=== PATIENT | female | born 1975 | race Caucasian/White ===

== ENCOUNTER 2024-05-16 08:28 | Outpatient (CLI) | payer MEDICARE, MEDICAID, SELFPAY | END 2024-05-16 08:29 | disposition home or self-care (01) | PROVIDERS: PCP Family Medicine; Visit Provider Family Medicine | DX: I10 Essential (primary) hypertension (principal); E03.9 Hypothyroidism, unspecified; E66.9 Obesity, unspecified; R53.83 Other fatigue; R35.0 Frequency of micturition; F41.8 Other specified anxiety disorders; Z78.0 Asymptomatic menopausal state | CPT/HCPCS: 80053; 80061; 82306; 84443; 87086 ==

== ENCOUNTER 2024-06-17 11:05 | Outpatient (CLI) | payer MEDICARE, OTHER, SELFPAY | END 2024-06-17 11:06 | disposition home or self-care (01) | LOC: NFLDREF 06-18 01:50 | PROVIDERS: PCP Family Medicine; Referring Provider Family Medicine; Visit Provider Family Medicine | DX: E03.9 Hypothyroidism, unspecified (principal); D72.829 Elevated white blood cell count, unspecified; R53.83 Other fatigue; N39.0 Urinary tract infection, site not specified | CPT/HCPCS: 84443; 87086 ==

== ENCOUNTER 2024-08-12 11:05 | Outpatient (CLI) | payer MEDICARE, OTHER, SELFPAY | END 2024-08-12 11:06 | disposition home or self-care (01) | PROVIDERS: PCP Family Medicine; Visit Provider Family Medicine | DX: I10 Essential (primary) hypertension (principal); E03.9 Hypothyroidism, unspecified; E55.9 Vitamin D deficiency, unspecified; E11.9 Type 2 diabetes mellitus without complications; E66.9 Obesity, unspecified; R51.9 Headache, unspecified | CPT/HCPCS: 80048; 82043; 82570; 84443 ==

== ENCOUNTER 2024-08-19 14:51 | Outpatient (CLI) | payer MEDICARE, OTHER, SELFPAY ==
--- NOTE | 2024-08-19 15:00 | CRLHL7_ITS ---
For Patients: As a result of the Century Cures Act, medical imaging exams and procedure reports are released immediately into your electronic medical record. You may view this report before your referring provider. If you have questions, please contact your health care provider. CLINICAL HISTORY: Progressive headaches; family history of cerebral aneurysms. TECHNIQUE: Standard helical CT image acquisition through the head following the administration of intravenous contrast was performed. 3D and MIP reconstructions were performed at a separate workstation and permanently archived. COMPARISON: None available. FINDINGS: No intracranial proximal large vessel occlusion or flow-limiting luminal stenosis. No evidence of cerebral aneurysm. No findings to suggest an arterial-venous shunting lesion. 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 Partially empty mildly expanded sella. IMPRESSION: 1. No intracranial proximal large vessel occlusion, flow-limiting luminal stenosis, or cerebral aneurysm. 2. Partially empty and mildly expanded sella in addition to suggestion of stenosis of the right transverse sinus, as above. These findings can be seen in the setting of idiopathic intracranial hypertension. Please note that all CT scans at this facility use dose modulation, iterative reconstruction, and/or weight-based dosing when appropriate to reduce radiation dose to as low as reasonably achievable. Dictated by Howie Lyle MD @ 08/20/2024 1:48:23 PM (Electronically Signed)
== END 2024-08-19 14:52 | disposition home or self-care (01) ==
LOC: CT 14:53
PROVIDERS: PCP Family Medicine; Visit Provider Family Medicine
DX: R51.9 Headache, unspecified (principal); Z82.49 Family history of ischemic heart disease and other diseases of the circulatory system
CPT/HCPCS: 70496; Q9967

== ENCOUNTER 2024-09-12 12:00 | Outpatient (CLI) | payer MEDICARE, OTHER, SELFPAY | END 2024-09-12 12:01 | disposition home or self-care (01) | LOC: LKVREF 12:02 | PROVIDERS: PCP Family Medicine; Visit Provider Family Medicine | DX: I10 Essential (primary) hypertension (principal) | CPT/HCPCS: 80048 ==